=== PATIENT | female | born 1945 | race Caucasian/White ===

== ENCOUNTER 2021-10-01 06:38 | Day surgery (SDC) | payer MEDICARE, BC ==
[~2021-10-01] VITALS: Ht 157.5 cm; Wt 77.3 kg
[2021-10-01] VITALS (8 sets, daily range): BP systolic 104–147; BP diastolic 34–89
[~2021-10-01 06:38] MED LIST: LIDOcaine 1%/PF 5ML 10 MG/ML VIAL IJ ONE
[2021-10-01] MEDS ORDERED: GUAI473S6 PO (07:06)
[2021-10-01] MEDS ORDERED: PRED50TA PO (07:06)
[2021-10-01] MEDS ORDERED: ARIP5TAB60 PO (07:06)
[2021-10-01] MEDS ORDERED: CITA40TA PO (07:06)
[2021-10-01] MEDS ORDERED: MONT-40 PO (07:06)
[2021-10-01] MEDS ORDERED: METO-395 PO (07:06)
[2021-10-01] MEDS ORDERED: MULT-1085 PO (07:07)
[2021-10-01] MEDS ORDERED: GUAI600T45 PO (07:08)
== END 2021-10-01 10:56 | disposition home or self-care (01) ==
LOC: SSTAY O 06:38
PROVIDERS: ATTEND Radiology Vascular & Interventional Radiology
DX: J90 Pleural effusion, not elsewhere classified (principal); J45.909 Unspecified asthma, uncomplicated; I10 Essential (primary) hypertension; E66.01 Morbid (severe) obesity due to excess calories; Z68.31 Body mass index [BMI] 31.0-31.9, adult; Z87.01 Personal history of pneumonia (recurrent); Z85.72 Personal history of non-Hodgkin lymphomas; Z98.890 Other specified postprocedural states; Z88.8 Allergy status to other drugs, medicaments and biological substances; Z79.899 Other long term (current) drug therapy
CPT/HCPCS: 32555; 83615; J3490; 88108; 88305